=== PATIENT | female | born 1935 | race Caucasian/White ===

== ENCOUNTER 2023-01-24 13:41 | Inpatient (IN) | payer OTHER, MEDICARE ==
[2023-01-24 14:56] LABS: HEMOGLOBIN 13.6 G/dL (10.7-15.3); MCH 29.7 pg (25.7-33.7); MCHC 32.4 g/dl (32.0-36.0); MEAN PLT VOLUME 9.3 fl (7.5-11.1); PLATELET COUNT 280.1 10^3/uL (134-434); RBC 4.57 10^6/uL (3.60-5.2); RDW 14.6 % (11.6-15.6); WHITE BLOOD COUNT 9.1 10^3/uL (4.0-10.8)
[2023-01-24 15:13] LABS: ALBUMIN 4.4 g/dl (3.4-5.0); BILIRUBIN,TOTAL 0.4 mg/dl (0.2-1); BLOOD UREA NITROGEN 16.7 mg/dl (7-18); CALCIUM 9.5 mg/dl (8.5-10.1); CREATININE 0.7 mg/dl (0.6-1.3); POTASSIUM 4.2 mmol/L (3.5-5.1); SGOT/AST 19.058 U/L (15-37); SGPT/ALT 12.381 U/L (7-52); TOT PROT 7.3 g/dl (6.4-8.2)
[2023-01-24 16:03] LABS: PLATELET ESTIMATE ADEQUATE
[2023-01-24] MEDS ORDERED: LACTATED RINGERS SOLUTION 1,000 ML IV SCH (17:00)
[2023-01-24 17:13] LABS: AMORP URATES SMALL /hpf (NONE SEEN)
[2023-01-24 18:05] VITALS: BMI 25.1
[2023-01-24] MEDS: INSULIN SLIDING SCALE (NOVOLOG) 1 VIAL SQ SCH (21:42)
[2023-01-24] MEDS ORDERED: MELATONIN 5 MG TABLETS PO ONE (22:42)
[2023-01-24] MEDS ORDERED: amLODIPine BESYLATE 5 MG TABLET (FP) PO ONE (23:15)
[2023-01-25] MEDS: LEVOTHYROXINE NA 50 MCG TABLET (FP) PO SCH (06:08)
[2023-01-25] MEDS: INSULIN SLIDING SCALE (NOVOLOG) 1 VIAL SQ SCH ×4 (06:10→21:15)
[2023-01-25 08:37] LABS: INR 1.05 (0.83-1.09); PROTHROMBIN TIME (PATIENT) 12.2 SEC (9.7-13.0)
[2023-01-25 08:39] LABS: ACTIVATED PTT 28.1 SECONDS (25.2-36.5)
[2023-01-25] MEDS ORDERED: ENOXAPARIN NA (PORCINE) 40 MG/0.4 ML DISP.SYRIN SQ SCH (10:00)
[2023-01-25] MEDS ORDERED: PATIENT'S OWN MEDICATION (NON-FORMULARY) (Dapagliflozin Propanediol 5 MG Tablet) PO SCH (10:00)
[2023-01-25] MEDS: amLODIPine BESYLATE 5 MG TABLET (FP) PO SCH (10:20)
[2023-01-25] MEDS: ENOXAPARIN NA (PORCINE) 30 MG/0.3 ML DISP.SYRIN SQ SCH (10:20)
[2023-01-25 12:08] LABS: POTASSIUM 3.6 mmol/L (3.5-5.1)
[2023-01-25 12:10] LABS: CALCIUM 8.4 mg/dL (8.5-10.1)
[2023-01-25 12:11] LABS: ALBUMIN 3.7 g/dl (3.4-5.0); BLOOD UREA NITROGEN 13.2 mg/dL (7-18)
[2023-01-25 12:13] LABS: BASO % 0.9 % (0-2.0); EOS % 6.4 % (0-4.5); HEMATOCRIT 39.6 % (32.4-45.2); HEMOGLOBIN 12.8 GM/dL (10.7-15.3); LYMPH % 24.5 % (8-40); MCH 29.1 pg (25.7-33.7); MCHC 32.3 g/dl (32.0-36.0); MEAN CELL VOLUME 90.1 fl (80-96); MEAN PLT VOLUME 9.3 fl (7.5-11.1); MONO % 9.3 % (3.8-10.2); NEUT % 58.9 % (42.8-82.8); PLATELET COUNT 295 10^3/uL (134-434); RDW 14.1 % (11.6-15.6); WHITE BLOOD COUNT 6.1 K/mm3 (4.0-10.0)
[2023-01-25 12:16] LABS: CREATININE 0.6 mg/dL (0.55-1.3); PHOSPHOROUS 3.5 mg/dL (2.5-4.9)
[2023-01-25 12:17] LABS: TOT PROT 7.2 g/dl (6.4-8.2)
[2023-01-25 12:18] LABS: BILIRUBIN,TOTAL 0.4 mg/dL (0.2-1)
[2023-01-25 12:19] LABS: N-TERMINAL BNP 177.3 pg/ml (5-450)
[2023-01-25 14:24] LABS: CHOLESTEROL 186 mg/dl (50-200); HDL CHOLESTEROL 76 mg/dl (40-60); LDL CHOLESTEROL (ONLY DFH) 89 mg/dl (5-100)
[2023-01-25 23:15] VITALS: RESP 16
[2023-01-26 06:50] VITALS: TEMP 98.1
[2023-01-26] MEDS: LEVOTHYROXINE NA 50 MCG TABLET (FP) PO SCH (06:57)
[2023-01-26] MEDS: INSULIN SLIDING SCALE (NOVOLOG) 1 VIAL SQ SCH ×2 (07:03→11:49)
[2023-01-26] MEDS: ENOXAPARIN NA (PORCINE) 30 MG/0.3 ML DISP.SYRIN SQ SCH (09:54)
[2023-01-26] MEDS: amLODIPine BESYLATE 5 MG TABLET (FP) PO SCH (09:54)
[2023-01-26 10:09] VITALS: BP 138/56; PULSE 56
== END 2023-01-26 14:15 | disposition home or self-care (01) | DRG 312 ==
LOC: FER 13:41 → SUPCPDRO 13:41 → FM/S 16:51 → OBSVTOIN 21:13
PROVIDERS: ADMIT Internal Medicine
DX: R55 Syncope and collapse (principal); G23.8 Other specified degenerative diseases of basal ganglia; I10 Essential (primary) hypertension; E11.9 Type 2 diabetes mellitus without complications; E03.9 Hypothyroidism, unspecified; E78.5 Hyperlipidemia, unspecified; G30.0 Alzheimer's disease with early onset; F02.80 Dementia in other diseases classified elsewhere, unspecified severity, without behavioral disturbance, psychotic disturbance, mood disturbance, and anxiety
CPT/HCPCS: 0241U-QW; 36415; 70450-TC; 71045-TC-FY; 80048; 80053; 80061; 81003; 81015; 82550; 82962; 83735; 83880; 84100; 84443; 84484; 85025; 85027; 85379; 85610; 85730; 87086; 93005; 93306-TC; 93880-TC; 93970-TC; 97116-GP; 97162-GP; 99285-25; G0378